=== PATIENT | male | born 1945 | race Caucasian/White ===

== ENCOUNTER 2017-10-09 07:25 | Day surgery (SDC) | payer MEDICARE, OTHER ==
[~2017-10-09 07:25] MED LIST: Buffered Lidocaine 0.9% SYRIN* 5 ML/SYR SYRINGE INTRADERM ONE; Famotidine IV* 10 MG/ML 2 ML (20 mg) IV ONE; Sodium Citrate/Citric Acid* 15 ML UDC PO ONE
[2017-10-09] MEDS ORDERED: Famotidine IV* 10 MG/ML 2 ML (20 mg) ONE (07:33)
[2017-10-09] MEDS ORDERED: Sodium Citrate/Citric Acid* 15 ML UDC ONE (07:33)
[2017-10-09] MEDS ORDERED: ceFAZolin 2 GM PREMIX (*) 2 GM/50 ML BAG IVPB ONE (07:33)
[2017-10-09] MEDS ORDERED: fentaNYL* 50 MCG/ML 2 ML VIAL (100 MCG VIAL) ONE (08:17)
[2017-10-09] MEDS ORDERED: KETAMINE HCL* 50 MG/ML 10 ML VIAL ONE (08:17)
[2017-10-09] MEDS ORDERED: Midazolam* 1 MG/ML 2 ML VIAL (2 MG) ONE (08:17)
[2017-10-09] MEDS ORDERED: fentaNYL* 50 MCG/ML 2 ML VIAL (100 MCG VIAL) IV PRN (08:22)
[2017-10-09] MEDS ORDERED: oxyCODONE TAB* 5 MG TAB PO PRN (08:22)
[2017-10-09] MEDS ORDERED: HYDROcodone/ACETAMIN 5-325 MG* 1 TAB PO PRN (08:22)
[2017-10-09] MEDS ORDERED: HYDROmorphone INJ* 1 MG/ML CARPUJECT SYRINGE IV PRN (08:22)
[2017-10-09] MEDS ORDERED: PROCHLORPERAZINE INJ 5 MG/ML 2 ML VIAL IV PRN (08:22)
[2017-10-09] MEDS ORDERED: oxyCODONE/Acetamin 5/325 MG* TAB PO PRN (08:22)
[2017-10-09] MEDS ORDERED: Nalbuphine* 20 MG/ML 1 ML VIAL IV PRN (08:22)
[2017-10-09] MEDS ORDERED: Ondansetron INJ* 2 MG/ML VIAL IV PRN (08:22)
[2017-10-09] MEDS ORDERED: Propofol* 10 MG/ML 20 ML BTL IV PUSH ONE (08:26)
[2017-10-09] MEDS ORDERED: Lidocaine 2% PF* 10 ML AMP ONE (08:49)
[2017-10-09] MEDS ORDERED: Bupivacaine 0.5% SDV PF* 30 ML VIAL ONE (08:49)
[2017-10-09] MEDS ORDERED: Rocuronium* 10 MG/ML VIAL ONE (08:52)
[2017-10-09] MEDS ORDERED: Sterile Water for Inj* 10 ML ONE (09:54)
[2017-10-09] MEDS ORDERED: Ondansetron INJ* 2 MG/ML VIAL ONE (09:54)
[2017-10-09] MEDS ORDERED: Glycopyrrolate IV* 0.2 MG/ML 1 ML VIAL ONE (09:54)
[2017-10-09] MEDS ORDERED: EPHEDrine (Pressors)* 50 MG/ML VIAL ONE (09:54)
[2017-10-09] MEDS ORDERED: Succinylcholine* 20 MG/ML 10 ML VIAL ONE (09:54)
[2017-10-09] MEDS ORDERED: VASOPRESSIN 20 UNITS/ML 1 ML VIAL ONE (09:54)
[2017-10-09] MEDS ORDERED: Phenylephrine IV* 40 MCG/ML 10 ML SYRINGE ONE (09:54)
[2017-10-09] MEDS ORDERED: oxyCODONE TAB* 5 MG TAB ONE (12:38)
[2017-10-09 12:42] VITALS: BP 117/57
--- NOTE | 2017-10-10 08:06 | OP ---
DATE OF OPERATION: 10/09/17 - [facility] DATE OF : 47 SURGEON: Jassi Disla MD. SENIOR ELECT[employer]ICAL CONTROLS ENGINEER: Jamilah Mcintosh PA-C. ANESTHESIA: General PRE-OP DIAGNOSIS: Left peroneus brevis tear. POST-OP DIAGNOSIS: Left peroneus brevis tear. OPERATIVE PROCEDURE: Repair of the peroneus brevis and groove deepening, left ankle. DESCRIPTION OF PROCEDURE: The patient was taken to the operating room where longitudinal incision was made over the distal fibula. We opened up the retinaculum to allow full visualization of the peroneus longus and brevis tendon at about 5 cm longitudinal tear at the level of the lateral malleolus. This was repaired in a double suture whipstitch giving some tubularization of the tendon. We used 3-0 Vicryl. The groove was deepened by creating an osteotomy just inside the lateral horn of the tibia. We drove this anteriorly with the bone tamp. We then placed two long sutures of #1 Vicryl to repair the retinaculum, and the subcutaneous with 2-0 Vicryl, and dimitry for the skin, and a compression dressing applied. [id number]/[facility] #: [id number] MTDD
== END 2017-10-09 13:20 | disposition home or self-care (01) ==
LOC: OR 07:25
PROVIDERS: ATTEND Orthopaedic Surgery
DX: M76.72 Peroneal tendinitis, left leg (principal); S86.312A Strain of muscle(s) and tendon(s) of peroneal muscle group at lower leg level, left leg, initial encounter; Z87.891 Personal history of nicotine dependence; X58.XXXA Exposure to other specified factors, initial encounter; Y92.9 Unspecified place or not applicable; Y93.9 Activity, unspecified
CPT/HCPCS: A9270-GY; J0330; J0690; J2001; J2250; J2405; J2704; J3010